=== PATIENT | female | born 1995 | race Caucasian/White ===

== ENCOUNTER 2018-06-03 20:01 | Inpatient (IN) | payer OTHER ==
[~2018-06-03] VITALS: Ht 157.5 cm; Wt 54.4 kg
[2018-06-03 10:03] VITALS: Ht 157.5 cm; Wt 54.4 kg
[~2018-06-03 20:01] MED LIST: AMOX-559 PO; CITA-157 PO; ETHI1TAB3 PO; KET10 PO; ONDA4TAB PO
[2018-06-03 20:35] VITALS: BP 124/82
[2018-06-04 06:42] VITALS: BP 105/76
[2018-06-04 07:18] LABS: PLATELET COUNT, AUTOMATED 258 K/uL (150-450)
[2018-06-04] MEDS: MULTIVITAMINS TAB PO SCH (08:22)
[2018-06-04] MEDS: ESTRADIOL/NORETHINDR ACETATE 1 EA TAB PO SCH (08:30)
--- NOTE | 2018-06-04 09:27 | EKG ---
FACILITY: [facility] PATIENT NAME: AGAPITO CARRINGTON : [id number] MR: [id number] V: [id number] EXAM DATE: ORDERING PHYSICIAN: FAROOQ DHILLON TECHNOLOGIST: SHANIKA Velasquez Reason : Blood Pressure : / mmHG Vent. Rate : 064 BPM Atrial Rate : 064 BPM P-R Int : 128 ms QRS Dur : 078 ms QT Int : 426 ms P-R-T Axes : 042 061 013 degrees QTc Int : 439 ms Normal sinus rhythm with sinus arrhythmia Nonspecific T wave abnormality Abnormal ECG When compared with ECG of 03-JUN-2018 06:02, No significant change was found Confirmed by Caio Allen ([id number]) on 06/04/2018 2:34:53 PM Referred By: Confirmed By:Caio Stanford
[2018-06-04 12:50] VITALS: BP 110/68
[2018-06-04 20:07] VITALS: BP 118/78
--- NOTE | 2018-06-05 03:25 | HISTORY AND PHYSICAL ---
DATE OF ADMISSION: June 03, 2018 DATE AND TIME SEEN: June 04, 2018, at 10 a.m. ATTENDING PRACTITIONER Gail Hinton, Psychiatric Nurse Practitioner PRESENTING PROBLEM/CHIEF COMPLAINT "I felt overwhelmed and just wanted to not feel that way anymore." HISTORY OF PRESENT ILLNESS This is a 23-year-old female admitted to the unit on a voluntary basis as per transfer from the intensive care unit, where she spent one night following an intentional overdose on Celexa and ibuprofen. Patient reports that on the night that she overdosed, she had been feeling overwhelmed related to psychosocial stressors including a relationship with a significant other, problems with friends at school. She has also been stressed about her upcoming graduation from the [employer] and the LSAT that she is scheduled to take next month. She was drinking on the night of overdose, reporting that she had approximately five to six drinks out with friends. She reports that she had not been planning suicide, and that on the night she impulsively overdosed, she had taken approximately 100 ibuprofen and about 12 of her 40 mg Celexa tablets. She was treated in the emergency room and kept overnight in the intensive care unit for observation. Patient reports that she has been taking Celexa for the past four years. She reports that it is overall helpful for her mood and anxiety, and she does not feel that she needs a medication change. She does have anxiety and worries related to the psychosocial stressors as mentioned. She is quite sad about the relationship with the significant other that she found out is nonviable, and this was a main trigger for her suicide attempt. She denies any past history of suicide attempts. She is not currently in therapy. She is denying current suicidal ideation, reporting that her last suicidal thought was that night prior to taking the overdose. CURRENT MEDICATIONS 1. Celexa 40 mg daily. 2. -control pills. MENTAL HEALTH HISTORY She denies hospitalizations for depression. She has been admitted two times for eating disorder treatment, one time at [facility] and [facility] [place]. She reports that she did have a history of anorexia and bulimia, and that she has been in recovery since she was 18 years old. She was hospitalized last for the eating disorder between, she says, her freshman and harleen year of high school. In terms of treatment, she is not currently in therapy, and she denies history of therapy other than the eating disorder inpatient treatments. Prior medications include Zyprexa, Seroquel, Lexapro, Paxil, Prozac. She believes there may have been other medication trials; however, she does not recall. She denies a prior history of suicide attempts. FAMILY PSYCHIATRIC HISTORY She is not aware of any mental illness on her maternal side. She reports that she believes there is mental illness on her paternal side of the family; however, she does not know what diagnoses. There are no known suicides in the family that she is aware of. She denies addiction in the family other than a paternal aunt that is a half sibling of her father's has problems with drug addiction. PAST MEDICAL HISTORY She is on -control pills currently. 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 She denies any current medical complaints. SOCIAL HISTORY She reports that she was born in [place] and she was raised in [place], [place]; [place], [place]; [place], [place]. She reports that she graduated high school in [place]. She is the middle child, has one brother aged 17 and another brother aged 23 years old. Her parents live in [place], [place]. Her father is a psychiatrist. She reports that she does not get along as well with her mother. She does get along well with her father. She is currently living in [place], [place], where she is a senior in college at the [employer]. She will be graduating in August with a degree in history. She plans to take the LSAT, as she would like to attend law school. TRAUMA HISTORY Denied. LEGAL HISTORY She had an MIP for alcohol at age [age] years old. SUBSTANCE ABUSE HISTORY She reports that she first drank alcohol at age 20. She reports that she drinks socially one to two times a week, drinking approximately five to six drinks. She does report a history of blackouts. She denies a history of illicit drug use and denies tobacco use. PHYSICAL EXAMINATION GENERAL: This is a well-developed, well-nourished 23-year-old female in no acute distress. VITAL SIGNS: On admission to the unit, temperature 97.3, pulse 71, blood pressure 124/82, oxygen saturations 97% on room air. Please see emergency room note and ICU records for review of systems. LABORATORY DATA Upon admission to the emergency room, her blood alcohol level was 75. Acetaminophen and salicylate levels were negative. Her urine drug screen was positive for amphetamines, although she does deny using amphetamines. HCG was negative. TSH was 1.00. CBC: Red blood cells at 3.65 and low, hemoglobin at 11.7 and a little low. Chemistries repeated on 06/04/2018 showed chloride at 109, slightly high. Her BUN is 4 and low. Total bilirubin 0.1 and low. Her EKG completed on the morning of 06/04/2018 shows QTC at 426. MENTAL STATUS EXAMINATION GENERAL APPEARANCE, BEHAVIOR AND ATTITUDE: This is a 23-year-old female who appears her stated age. She is dressed in hospital scrubs, per policy. Hygiene appears within normal limits. She makes good eye contact, is cooperative and interactive with clinician. No tearfulness noted during interview. SPEECH: Clear and spontaneous and of normal rate, rhythm, and volume. MOOD: Patient describes mood as better. AFFECT: Somewhat anxious. Range is full and appropriate to situation and content. THOUGHT PROCESSES: Overall logical and goal directed. No loose associations or flight of ideas. THOUGHT CONTENT: She denies any thoughts of self-harm. Denies suicidal thoughts. She denies homicidal thoughts. No delusions are elicited. She denies auditory, visual, or other hallucinations. COGNITION: She is oriented to person, place, day, date, and situation. Estimated intelligence is average based upon interview. MEMORY: Immediate, recent, and remote estimated grossly intact. INSIGHT AND JUDGMENT: Fair. She acknowledges that she has been struggling with stressors. She in the past has not been willing to work with a therapist; however, she is reporting at this time she agrees it may be helpful. ASSESSMENT This is a 23-year-old female admitted to the unit following intentional overdose in a suicide attempt. She reports that this was not a planned attempt and that it was done impulsively. She was intoxicated at the time of attempt. She does report psychosocial stressors that she is able to identify. She is denying suicidal thoughts today. She denies thoughts of self-harm. DIAGNOSES 1. Major depressive disorder, recurrent, moderate. 2. Status post overdose. 3. Rule out alcohol use disorder. PLAN Patient is admitted to the unit. Necessary precautions will be implemented. The patient will participate in individual, group, and milieu psychoeducation and therapy. Medications will be administered and titrated accordingly. Collateral information to be obtained as necessary. ESTIMATED LENGTH OF STAY Three to five days. MTDD
[2018-06-05 04:14] VITALS: BP 115/92
[2018-06-05] MEDS: ESTRADIOL/NORETHINDR ACETATE 1 EA TAB PO SCH (09:10)
[2018-06-05] MEDS: MULTIVITAMINS TAB PO SCH (09:10)
[2018-06-05 14:55] VITALS: BP 90/64
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
[2018-06-05] MEDS: MELATONIN 3 MG TAB PO SCH (21:24)
[2018-06-06 02:29] VITALS: BP 106/77
--- NOTE | 2018-06-06 06:21 | BHS Progress Note ---
[facility] - Subjective Progress Notes Subjective I started Dolly on melatonin last night. She slept well on 3 mgs. She is on no other routine psychiatric medications. It has now been four days since her overdose and we agreed to restart citalopram at 40 mgs, her prior dose. Dolly's mood is much better. She rates her depression as 1/10 and anxiety 3/10 because she is worried about school and anxious to go home. I met with Dolly and her parents this afternoon. We had a very productive session addressing family dynamics, Dolly's needs going forward and their concerns for her. We also talked about a follow-up plan for psychiatric care. Suicidal Ideation: None Homicidal Ideation: None [facility] - Objective Physical Exam Vital Signs 99.2, 69, 101/75. Muscle Strength and Tone: WNL Gait and Station: Steady Allergies Reviewed: Yes Mental Status Exam General Appearance: Casual, Well Groomed, Good Eye Contact, Cooperative, Polite, Good Interaction; No Psychomotor Agitation, No Psychomotor Retardation Speech: Clear, Spontaneous, Normal Rate, Normal Rhythm, Normal Volume, Normal Tone Mood: Euthymic Affect: Full and Appropriate, Calm Thought Process: Organized, Logical, Goal Directed Thought Content: No Suicidal Ideation, No Homicidal Ideation, No Delusions, No Auditory Halllucinations Sensorium: Clear Cognition: Alert & Oriented-Person, Alert & Oriented-Place, Alert & Oriented- Time, Ldglz-Ispgncie-Owsndczsm Memory: Immediate, Recent, Remote Intelligence: Above Average Insight Judgment: Good Result Diagram: 06/04/18 0708 06/04/18 0708 [facility] Assessment and Plan Jget-ny-Jxbb Encounter Date: Jun 06, 2018 Uadz-xl-Ifyh Encounter Time: 08:15 [facility] Plan: Admit to Unit, Necessary Precautions, Individual/Group Therapy, Admin/Titrate Meds, Educate Patient Multpiple Antipsychotics Used: No Problems: (1) Adjustment disorder with depressed mood (2) Suicide attempt by drug ingestion Status: Acute (3) Intentional SSRI (selective serotonin reuptake inhibitor) overdose Status: Acute (4) Ibuprofen overdose Status: Acute (5) Malignant peripheral nerve sheath tumor Status: Resolved (6) Pyelonephritis Status: Resolved Condition 1. restart citalpram 40 mgs daily 2. Complete wellness recovery plan today 3. Hope to discharge tomorrow. 4. Dolly would benefit from an oral iron supplement as well ARIAS CANALES DO Jun 06, 2018 06:21
[2018-06-06] MEDS: MULTIVITAMINS TAB PO SCH (08:44)
[2018-06-06] MEDS: ESTRADIOL/NORETHINDR ACETATE 1 EA TAB PO SCH (08:44)
[2018-06-06] MEDS ORDERED: MAGNESIUM HYDROXIDE* 30ML UDCP PO PRN (09:35)
[2018-06-06] MEDS: CITALOPRAM HYDROBROM 20 MG TAB PO SCH (11:08)
[2018-06-06 12:30] VITALS: BP 101/75
[2018-06-06] MEDS: MELATONIN 3 MG TAB PO SCH (20:55)
[2018-06-07 06:00] VITALS: BP 107/73
[2018-06-07] MEDS: ESTRADIOL/NORETHINDR ACETATE 1 EA TAB PO SCH (08:11)
[2018-06-07] MEDS: MULTIVITAMINS TAB PO SCH (08:11)
[2018-06-07] MEDS: CITALOPRAM HYDROBROM 20 MG TAB PO SCH (08:11)
[2018-06-07] MEDS ORDERED: CITA-157 PO (09:53)
[2018-06-07] MEDS ORDERED: MELA3TAB31 PO (09:54)
[2018-06-07 10:10] VITALS: BP 104/68
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
== END 2018-06-07 16:20 | disposition home or self-care (01) | DRG 881 ==
LOC: BHS 20:01
PROVIDERS: ADMIT Nurse Practitioner Psychiatric/Mental Health; ATTEND Nurse Practitioner Psychiatric/Mental Health
DX: F43.21 Adjustment disorder with depressed mood (principal); T39.312D Poisoning by propionic acid derivatives, intentional self-harm, subsequent encounter; T43.222D Poisoning by selective serotonin reuptake inhibitors, intentional self-harm, subsequent encounter; Z85.848 Personal history of malignant neoplasm of other parts of nervous tissue; G47.00 Insomnia, unspecified
CPT/HCPCS: 36415; 82040; 82247; 82310; 82374; 82435; 82565; 82947; 84075; 84132; 84155; 84295; 84450; 84460; 84520; 85025; 93005

== ENCOUNTER 2018-06-30 15:19 | Observation (INO) | payer OTHER ==
[~2018-06-30] VITALS: Ht 157.5 cm; Wt 52.7 kg
[2018-06-30] VITALS (11 sets, daily range): BP systolic 121–136; BP diastolic 93–105
[~2018-06-30 15:19] MED LIST changes: +MELA3TAB31 PO
--- NOTE | 2018-06-30 15:31 | ER Report ---
History and Physical Time Seen By MD: 15:26 HPI/ROS CHIEF COMPLAINT: Suicide attempt HISTORY OF PRESENT ILLNESS: This is a 23-year-old female who presents to the emergency department via a friend for suicide attempt. The patient apparently took 3040 mg Celexa last night in addition to an unknown quantity of Adderall with wine and possibly other alcoholic beverages. No other illicit drugs. Patient is alert she is somnolent but will answer my questions appropriately. She states that she's not sure why she took the medication she has 1 prior suicide attempt. Long history of depression. No fevers or chills. No chest pain or shortness of breath. REVIEW OF SYSTEMS: Constitutional: No fever, no chills. Eyes: No discharge. ENT: No sore throat. Cardiovascular: No chest pain, no palpitations. Respiratory: No cough, no shortness of breath. Gastrointestinal: No abdominal pain, no vomiting. Genitourinary: No hematuria. Musculoskeletal: No back pain. Skin: No rashes. Neurological: As above. Psychological: As above. Allergies: Coded Allergies: No Known Drug Allergies (Unverified , 06/30/18) Home Meds Reported Medications Melatonin (MELATONIN) 3 Mg Tablet, 3 MG PO QHS 06/07/18 Citalopram Hydrobromide (CELEXA) 40 Mg Tablet, 40 MG PO QDAY, #5 TAB 06/07/18 Ethinyl Estradiol/Drospirenone (ADRIANA 28 TABLET) 1 Each Tablet, 1 EACH PO QDAY 01/21/15 Past Medical/Surgical History Patient has a past medical and surgical history of urinary tract infection, "both ovaries tacked on left side", arthritis and she doesn't toes, bilateral foot fractures, wears glasses and contacts, depression, anxiety suicide attempt, eating disorder, 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 Reviewed Nurses Notes: Yes Hx Smoking: No Smoking Status: Never Smoker Exposure to Second Hand Smoke?: Yes Hx Substance Use Disorder: No Hx Alcohol Use: Yes Constitutional Vital Sign - Last 24 Hours 06/30/18 06/30/18 06/30/18 06/30/18 15:24 15:29 15:30 15:45 Temp 99.3 Pulse 142 140 139 Resp 12 20 28 B/P (MAP) 139/101 137/102 (114) 137/99 (112) Pulse Ox 100 99 100 O2 Delivery Nasal Cannula O2 Flow Rate 1.0 06/30/18 06/30/18 06/30/18 06/30/18 16:00 16:15 16:30 16:45 Pulse 133 131 134 130 Resp 24 11 27 26 B/P (MAP) 134/100 (111) 139/99 (112) 141/103 (116) 135/102 (113) Pulse Ox 100 100 98 99 06/30/18 06/30/18 17:00 17:15 Pulse 129 131 Resp 34 16 B/P (MAP) 141/96 (111) 143/109 (120) Pulse Ox 97 91 Physical Exam General Appearance: The patient is alert, has no immediate need for airway protection and no signs of toxicity. Eyes: Pupils 5mm, equal, round and reactive to light, no pallor or injection. One beat of lateral nystagmus bilaterally. EOMs intact. ENT, Mouth: Mucous membranes are moist. Respiratory: There are no retractions, lungs are clear to auscultation. Cardiovascular: Regular rate and rhythm, no murmurs, clicks or rubs. Gastrointestinal: Abdomen is soft and non tender, no masses, bowel sounds normal. Neurological: Alert and oriented 4. Moving all extremities. Following all commands. No focal neuro deficits. Skin: Warm and dry, no rashes. Musculoskeletal: Neck is supple non tender. Extremities are nontender, nonswollen and have full range of motion. DIFFERENTIAL DIAGNOSIS: After history and physical exam differential diagnosis was considered for intentional overdose. Medical Decision Making Data Points Result Diagram: 06/30/18 1524 06/30/18 1524 Laboratory Hematology Test 06/30/18 15:15 06/30/18 15:24 Urine Color Yellow Urine Clarity Clear Urine pH 8.0 pH (4.8-9.5) Urine Specific [place] 1.008 Urine Protein Negative mg/dL (NEGATIVE) Urine Glucose (UA) Negative mg/dL (NEGATIVE) Urine Ketones Negative mg/dL (NEGATIVE) Urine Blood Small (NEGATIVE) Urine Nitrite Negative (NEGATIVE) Urine Bilirubin Negative (NEGATIVE) Urine Urobilinogen Negative mg/dL (0.2-1.9) Urine Leukocyte Esterase Negative (NEGATIVE) Urine RBC None /HPF (0-2/HPF) Urine WBC None /HPF (0-5/HPF) Urine Squamous Epithelial Cells None /LPF (</=FEW) Urine Bacteria Negative /HPF (NONE-FEW) Urine Mucus None /HPF (NONE-FEW) Urine HCG, Qualitative Negative (NEGATIVE) Urine Opiates Screen Negative Urine Barbiturates Screen Negative Ur Tricyclic Antidepressants Screen Negative Urine Phencyclidine Screen Negative Urine Amphetamines Screen Positive Urine Benzodiazepines Screen Negative Urine Cocaine Screen Negative Urine Cannabinoids Screen Negative Red Blood Count 4.32 M/uL (4.17-5.56) Mean Corpuscular Volume 93.8 fL (80.0-96.0) Mean Corpuscular Hemoglobin 31.6 pg (26.0-33.0) Mean Corpuscular Hemoglobin Concent 33.6 g/dL (32.0-36.0) Red Cell Distribution Width 12.7 % (11.5-14.5) Mean Platelet Volume 7.8 fL (7.2-11.1) Neutrophils (%) (Auto) 76.7 % (39.4-72.5) Lymphocytes (%) (Auto) 15.1 % (17.6-49.6) Monocytes (%) (Auto) 7.8 % (4.1-12.4) Eosinophils (%) (Auto) 0.1 % (0.4-6.7) Basophils (%) (Auto) 0.3 % (0.3-1.4) Nucleated RBC Relative Count (auto) 0.0 /100WBC Neutrophils # (Auto) 8.3 K/uL (2.0-7.4) Lymphocytes # (Auto) 1.6 K/uL (1.3-3.6) Monocytes # (Auto) 0.8 K/uL (0.3-1.0) Eosinophils # (Auto) 0.0 K/uL (0.0-0.5) Basophils # (Auto) 0.0 K/uL (0.0-0.1) Nucleated RBC Absolute Count (auto) 0.00 K/uL Sodium Level 137 mmol/L (137-145) Potassium Level 3.9 mmol/L (3.5-5.0) Chloride Level 101 mmol/L (98-107) Carbon Dioxide Level 21 mmol/L (22-31) Blood Urea Nitrogen 7 mg/dl (7-18) Creatinine 0.80 mg/dl (0.52-1.04) Glomerular Filtration Rate Calc > 60.0 Random Glucose 106 mg/dl (75-110) Calcium Level 9.2 mg/dl (8.4-10.2) Magnesium Level 1.9 mg/dl (1.7-2.2) Total Bilirubin 0.2 mg/dl (0.2-1.3) Aspartate Amino Transf (AST/SGOT) 31 U/L (0-35) Alanine Aminotransferase (ALT/SGPT) 29 U/L (0-56) Alkaline Phosphatase 83 U/L (0-126) Total Protein 8.7 g/dl (6.3-8.2) Albumin 4.9 g/dl (3.5-5.0) Thyroid Stimulating Hormone (TSH) 9.68 uIU/ml (0.46-4.68) Salicylates Level < 10 mg/L Salicylate Last Dose Date unk Acetaminophen Level < 10 ug/ml Serum Alcohol < 10 mg/dl Chemistry Test 06/30/18 15:15 06/30/18 15:24 Urine Color Yellow Urine Clarity Clear Urine pH 8.0 pH (4.8-9.5) Urine Specific [place] 1.008 Urine Protein Negative mg/dL (NEGATIVE) Urine Glucose (UA) Negative mg/dL (NEGATIVE) Urine Ketones Negative mg/dL (NEGATIVE) Urine Blood Small (NEGATIVE) Urine Nitrite Negative (NEGATIVE) Urine Bilirubin Negative (NEGATIVE) Urine Urobilinogen Negative mg/dL (0.2-1.9) Urine Leukocyte Esterase Negative (NEGATIVE) Urine RBC None /HPF (0-2/HPF) Urine WBC None /HPF (0-5/HPF) Urine Squamous Epithelial Cells None /LPF (</=FEW) Urine Bacteria Negative /HPF (NONE-FEW) Urine Mucus None /HPF (NONE-FEW) Urine HCG, Qualitative Negative (NEGATIVE) Urine Opiates Screen Negative Urine Barbiturates Screen Negative Ur Tricyclic Antidepressants Screen Negative Urine Phencyclidine Screen Negative Urine Amphetamines Screen Positive Urine Benzodiazepines Screen Negative Urine Cocaine Screen Negative Urine Cannabinoids Screen Negative White Blood Count 10.8 k/uL (4.5-11.0) Red Blood Count 4.32 M/uL (4.17-5.56) Hemoglobin 13.6 g/dL (12.0-16.0) Hematocrit 40.5 % (34.0-47.0) Mean Corpuscular Volume 93.8 fL (80.0-96.0) Mean Corpuscular Hemoglobin 31.6 pg (26.0-33.0) Mean Corpuscular Hemoglobin Concent 33.6 g/dL (32.0-36.0) Red Cell Distribution Width 12.7 % (11.5-14.5) Platelet Count 341 K/uL (150-450) Mean Platelet Volume 7.8 fL (7.2-11.1) Neutrophils (%) (Auto) 76.7 % (39.4-72.5) Lymphocytes (%) (Auto) 15.1 % (17.6-49.6) Monocytes (%) (Auto) 7.8 % (4.1-12.4) Eosinophils (%) (Auto) 0.1 % (0.4-6.7) Basophils (%) (Auto) 0.3 % (0.3-1.4) Nucleated RBC Relative Count (auto) 0.0 /100WBC Neutrophils # (Auto) 8.3 K/uL (2.0-7.4) Lymphocytes # (Auto) 1.6 K/uL (1.3-3.6) Monocytes # (Auto) 0.8 K/uL (0.3-1.0) Eosinophils # (Auto) 0.0 K/uL (0.0-0.5) Basophils # (Auto) 0.0 K/uL (0.0-0.1) Nucleated RBC Absolute Count (auto) 0.00 K/uL Glomerular Filtration Rate Calc > 60.0 Calcium Level 9.2 mg/dl (8.4-10.2) Magnesium Level 1.9 mg/dl (1.7-2.2) Total Bilirubin 0.2 mg/dl (0.2-1.3) Aspartate Amino Transf (AST/SGOT) 31 U/L (0-35) Alanine Aminotransferase (ALT/SGPT) 29 U/L (0-56) Alkaline Phosphatase 83 U/L (0-126) Total Protein 8.7 g/dl (6.3-8.2) Albumin 4.9 g/dl (3.5-5.0) Thyroid Stimulating Hormone (TSH) 9.68 uIU/ml (0.46-4.68) Salicylates Level < 10 mg/L Salicylate Last Dose Date unk Acetaminophen Level < 10 ug/ml Serum Alcohol < 10 mg/dl Toxicology Test 06/30/18 15:15 06/30/18 15:24 Urine Opiates Screen Negative Urine Barbiturates Screen Negative Ur Tricyclic Antidepressants Screen Negative Urine Phencyclidine Screen Negative Urine Amphetamines Screen Positive Urine Benzodiazepines Screen Negative Urine Cocaine Screen Negative Urine Cannabinoids Screen Negative Salicylates Level < 10 mg/L Salicylate Last Dose Date unk Acetaminophen Level < 10 ug/ml Serum Alcohol < 10 mg/dl Urinalysis Test 06/30/18 15:15 Urine Color Yellow Urine Clarity Clear Urine pH 8.0 pH (4.8-9.5) Urine Specific [place] 1.008 Urine Protein Negative mg/dL (NEGATIVE) Urine Glucose (UA) Negative mg/dL (NEGATIVE) Urine Ketones Negative mg/dL (NEGATIVE) Urine Blood Small (NEGATIVE) Urine Nitrite Negative (NEGATIVE) Urine Bilirubin Negative (NEGATIVE) Urine Urobilinogen Negative mg/dL (0.2-1.9) Urine Leukocyte Esterase Negative (NEGATIVE) Urine RBC None /HPF (0-2/HPF) Urine WBC None /HPF (0-5/HPF) Urine Squamous Epithelial Cells None /LPF (</=FEW) Urine Bacteria Negative /HPF (NONE-FEW) Urine Mucus None /HPF (NONE-FEW) Urine HCG, Qualitative Negative (NEGATIVE) EKG/Imaging EKG Interpretation 12 lead EKG: Time of EKG 1526. Rhythm: Sinus tachycardia, ventricular rate 141 bpm. [place]: normal QRS: normal ST segments: No ST depression or elevation identified. No significant changes from the 06/04/2018 EKG other than rate, amplitude and current EKG showing positive deflection of the T-wave in V2. ED Course/Re-evaluation Clinical Indication for ER IV: Hydration, IV Access ED Course The patient was admitted to room. A history of square obtained. Differential diagnoses were considered. An IV was started. A CBC, CMP, psych panel was obtained. A 1 L normal saline bolus was given. Followed by saline at 125 an hour. Initial EKG showing sinus tachycardia no ST depression or elevation.CBC unremarkable, chemistry showing TSH 9.68, tox screen positive for amphetamines secondary to Adderall, negative alcohol otherwise unremarkable, negative UA. I did emergency detain the patient, she understood why, I also spoke with Dr. Umm Bedoya is noted below, the hospitalist, she will be admitted to the ICU, also spoke with Caitlin Crews the therapist on-call, she will consult and the patient will likely go to the behavioral unit tomorrow. Poison control was contacted note their recommendations below. 06/30/2018 5:15:34 pm I did speak with Dr. Umm Bedoya, the hospitalist on-call, we discussed case, the patient will be admitted to the ICU for suicide attempt. Poison control did recommend 13 hours of cardiac monitoring for Celexa dosing greater than 1000 mg, estimated 1200 mg of Celexa was ingested. Also monitor for torsades and hyperthermia, repeat EKG in 4-6 hours. The patient was detained in the emergency department. I did contact Caitlin Crews, the therapist on-call we discussed the case, she is aware of the patient's status. Decision to Disposition Date: Jun 30, 2018 Decision to Disposition Time: 17:14 Depart Departure Latest Vital Signs Vital Signs Date Time Temp Pulse Resp B/P (MAP) Pulse Ox O2 Delivery O2 Flow Rate FiO2 06/30/18 17:15 131 16 143/109 (120) 91 06/30/18 15:29 1.0 06/30/18 15:24 99.3 Nasal Cannula Impression: Primary Impression: Suicide attempt by drug ingestion Condition: Critical Disposition: Admitted from ER Problem Qualifiers Primary Impression: Suicide attempt by drug ingestion Encounter type: subsequent encounter Qualified Codes: T50.902D - Poisoning by unspecified drugs, medicaments and biological substances, intentional self-harm, subsequent encounter NIKO RODRIGUEZ DRAWING SUPERVISOR-BC Jun 30, 2018 15:31
--- NOTE | 2018-06-30 15:34 | EKG ---
FACILITY: [facility] - [place], [place] PATIENT NAME: AGAPITO CARRINGTON : [id number] MR: [id number] V: [id number] EXAM DATE: ORDERING PHYSICIAN: NIKO RODRIGUEZ TECHNOLOGIST: Test Reason : overdose, tachycardia Blood Pressure : / mmHG Vent. Rate : 141 BPM Atrial Rate : 141 BPM P-R Int : 124 ms QRS Dur : 078 ms QT Int : 286 ms P-R-T Axes : 071 054 025 degrees QTc Int : 438 ms Sinus tachycardia Otherwise normal ECG When compared with ECG of 04-JUN-2018 08:46, Vent. rate has increased BY 77 BPM T wave inversion no longer evident in Anterior leads Confirmed by SANTOSH LOWERY ([id number]) on 07/01/2018 6:41:31 AM Referred By: Confirmed By:SANTOSH LOWERY
[2018-06-30 15:40] LABS: PLATELET COUNT, AUTOMATED 341 K/uL (150-450)
[2018-06-30] MEDS ORDERED: NS(*) 0.9% 1000 ML BAG 1,000 ML IV ONE ×2 (15:47→17:10)
[2018-06-30] MEDS ORDERED: FLUSH 10 ML SYR IVP PRN (18:20)
[2018-06-30] MEDS ORDERED: NS(*) 0.9% 1000 ML BAG 1,000 ML IV PRN (18:20)
--- NOTE | 2018-06-30 18:49 | History & Physical ---
History of Present Illness Chief Complaint The patient is a 23 year old with PMH significant for depression, eating disorder and previous overdose who presents after taking thirty 40mg Celexa and six Adderall last evening after drinking alcohol. History of Present Illness The patient was hospitalized on June 02 with intentional Celexa overdose. She has a history of depression and eating disorder. 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 The patient states she was doing well yesterday and then last evening some changed, as if a switch was flipped. She can not provide great details but states she went to [employer] and drank alcohol. She then came home and took her Celexa and some Adderall. She woke up this am on the floor of her apartment. She does not know how she got there. She was brought by a friend to [facility] ER for evaluation. History Problems: (1) Depression Status: Chronic (2) Intentional SSRI (selective serotonin reuptake inhibitor) overdose Status: Acute Comment: 06/02/18 (3) Malignant peripheral nerve sheath tumor Status: Resolved (4) Eating disorder Status: Chronic Home Meds Reported Medications Melatonin (MELATONIN) 3 Mg Tablet, 3 MG PO QHS 06/07/18 Citalopram Hydrobromide (CELEXA) 40 Mg Tablet, 40 MG PO QDAY, #5 TAB 06/07/18 Ethinyl Estradiol/Drospirenone (ADRIANA 28 TABLET) 1 Each Tablet, 1 EACH PO QDAY 01/21/15 Allergies: Coded Allergies: No Known Drug Allergies (Unverified , 06/30/18) Other Social/Family Hx The patient attends the [employer]. Her family lives in [place]. Hx Smoking: No Smoking Status: Never Smoker Exposure to Second Hand Smoke?: Yes Caffeine Intake: Coffee Caffeine/Cups Per Day: 2 cups a day Hx Alcohol Use: Yes Hx Substance Use Disorder: No Social Drug Use: Never History of IV Drug Use: No Review of Systems All Systems Reviewed/Normal: Yes, Except as Noted Constitutional: Other (Feels poorly, can't explain.) Cardiovascular: No Chest Pain Respiratory: No Shortness of Breath Gastrointestinal: No Nausea Genitourinary: No Dysuria Musculoskeletal: No Pain Psychiatric: Depression Exam Vital Signs Vital Signs Date Time Temp Pulse Resp B/P (MAP) Pulse Ox O2 Delivery O2 Flow Rate FiO2 06/30/18 18:32 119 20 136/105 (115) 95 Room Air 06/30/18 18:16 99.6 06/30/18 15:29 1.0 General Appearance: Alert, Awake, No Acute Distress, Afebrile Neuro: No Gross deficits Eyes: PERRLA ENT: Other (Lips are dry.) Neck: No Masses Cardiovascular: Other (Hyperdynamic, tachycardic, regular, without murmur or gallop.) Respiratory: No Respiratory Distress, Clear to Auscultation GI: Abd Soft and Non-Tender Extremities: Warm, Pulses, Perfused, Other (No edema. ) Integumentary: Other (Scattered bruises over lower legs.) Psych: Alert & Oriented X3 Medical Decision Making Data Points Result Diagram: 06/30/18 15206/30/181523 Item Value Date Time Neutrophils (%) (Auto) 76.7 % H 06/30/18 152 Lymphocytes (%) (Auto) 15.1 % L 06/30/18 152 Monocytes (%) (Auto) 7.8 % 06/30/18 1524 Eosinophils (%) (Auto) 0.1 % L 06/30/18 152 Basophils (%) (Auto) 0.3 % 06/30/181523 Nucleated RBC Relative Count (auto) 0.0 /100WBC 06/30/181523 Neutrophils # (Auto) 8.3 K/uL H 06/30/184 Lymphocytes # (Auto) 1.6 K/uL 06/30/18 1524 Monocytes # (Auto) 0.8 K/uL 06/30/18 1524 Eosinophils # (Auto) 0.0 K/uL 06/30/18 1524 Basophils # (Auto) 0.0 K/uL 06/30/18 152 Nucleated RBC Absolute Count (auto) 0.00 K/uL 06/30/18 1524 Random Glucose 106 mg/dl 06/30/18 1524 Calcium Level 9.2 mg/dl 06/30/18 1524 Magnesium Level 1.9 mg/dl 06/30/18 1524 Total Bilirubin 0.2 mg/dl 06/30/18 1524 Aspartate Amino Transf (AST/SGOT) 31 U/L 06/30/18 1524 Alanine Aminotransferase (ALT/SGPT) 29 U/L 06/30/18 1524 Alkaline Phosphatase 83 U/L 06/30/18 1524 Total Protein 8.7 g/dl H 06/30/18 1524 Albumin 4.9 g/dl 06/30/18 1524 Thyroid Stimulating Hormone (TSH) 9.68 uIU/ml H 06/30/18 1524 Salicylates Level < 10 mg/L 06/30/18 1524 Salicylate Last Dose Date unk 06/30/18 1524 Acetaminophen Level < 10 ug/ml 06/30/18 1524 Serum Alcohol < 10 mg/dl 06/30/18 1524 Urine Opiates Screen Negative 06/30/18 1515 Urine Barbiturates Screen Negative 06/30/18 1515 Ur Tricyclic Antidepressants Screen Negative 06/30/18 1515 Urine Phencyclidine Screen Negative 06/30/18 1515 Urine Amphetamines Screen Positive 06/30/18 1515 Urine Benzodiazepines Screen Negative 06/30/18 1515 Urine Cocaine Screen Negative 06/30/18 1515 Urine Cannabinoids Screen Negative 06/30/18 1515 Urine Color Yellow 06/30/18 1515 Urine Clarity Clear 06/30/18 1515 Urine pH 8.0 pH 06/30/18 1515 Urine Specific [place] 1.008 06/30/18 1515 Urine Protein Negative mg/dL 06/30/18 1515 Urine Glucose (UA) Negative mg/dL 06/30/18 1515 Urine Ketones Negative mg/dL 06/30/18 1515 Urine Blood Small 06/30/18 1515 Urine Nitrite Negative 06/30/18 1515 Urine Bilirubin Negative 06/30/18 1515 Urine Urobilinogen Negative mg/dL 06/30/18 1515 Urine Leukocyte Esterase Negative 06/30/18 1515 Urine RBC None /HPF 06/30/18 1515 Urine WBC None /HPF 06/30/18 1515 Urine Squamous Epithelial Cells None /LPF 06/30/18 1515 Urine Bacteria Negative /HPF 06/30/18 1515 Urine Mucus None /HPF 06/30/18 1515 Urine HCG, Qualitative Negative 06/30/18 1515 EKG / Imaging EKG Interpretation FACILITY: [facility] [place] PATIENT NAME: AGAPITO CARRINGTON : [id number] MR: [id number] V: [id number] EXAM DATE: ORDERING PHYSICIAN: NIKO RODRIGUEZ TECHNOLOGIST: Test Reason : overdose, tachycardia Blood Pressure : / mmHG Vent. Rate : 141 BPM Atrial Rate : 141 BPM P-R Int : 124 ms QRS Dur : 078 ms QT Int : 286 ms P-R-T Axes : 071 054 025 degrees QTc Int : 438 ms Sinus tachycardia Otherwise normal ECG When compared with ECG of 04-JUN-2018 08:46, Vent. rate has increased BY 77 BPM T wave inversion no longer evident in Anterior leads Referred By: Confirmed By: [id number] T: Pre-Admit Course Medical Record Review: Yes Assessment and Plan Problems: (1) Intentional SSRI (selective serotonin reuptake inhibitor) overdose Status: Acute Assessment & Plan: Will admit to ICU and monitor on telemetry. Monitor for arrhythmias. Repeat EKG at 2029. Benzodiazepines for agitation/anxiety as needed. Hydrate. Psychiatry to see in am. Following Poison Control's recommendations. (2) Depression Status: Chronic Assessment & Plan: On Celexa. Will have psychiatry see. Time Spent on Plan of Care: < 30 min Venous Thromboembolism Antithrombotics Is Pt On Any Antithrombotics?: No (Ambulate early.) Exam Sepsis Risk: No Definite Risk SANTOSH ROBINS MD Jun 30, 2018 18:49
--- NOTE | 2018-06-30 19:35 | BHS - Psychiatric Evaluation ---
ER - Title 25 MHE Evaluation Title 25 Evaluation Patient Detained By: Physician (KIRAN Godfrey) Referral Source: Professional: ER Professional, Rafael Coburn Date Patient Detained: Jun 30, 2018 Time Patient Detained: 17:30 Date Mcfp Expires: Jul 04, 2018 Time Mcfp Expires: 17:30 Legal Status: Police Hold: No Legal Status: Residence: Student Assessment Data Provided By: Patient, Other Source ([facility] physician, Nicole Bedoya) HPI/ROS: Per ER professional, Rafael Coburn, "This is a 23-year-old female who presents to the emergency department via a friend for suicide attempt. The patient apparently took 3040 mg Celexa last night in addition to an unknown quantity of Adderall with wine and possibly other alcoholic beverages. No other illicit drugs. Patient is alert she is somnolent but will answer my questions appropriately. She states that she's not sure why she took the medication she has 1 prior suicide attempt. Long history of depression." Admit due to SI or Attempt: Yes Suicide Plan: Has Plan w/out Access Alcohol or Drugs Involved: Yes (Patient told ER professionals she drank some wine.) Is Patient Info Reliable: Yes (patient acknowledges she tried to take her life, and says, "I don't know why I did this. It was like I was watching myself do it.") Is Collateral Info Reliable: Yes (No collateral info from this visit, but last month her mother shared a great deal about patient's history.) Current Home Psych Meds: Celexa Mental Status Exam General Appearance: Casual, Good Eye Contact, Cooperative, Good Interaction, Tearful Speech: No Normal Volume (Spoke in a whisper) Mood: Dysthmic/Depressed Affect: Sad Thought Process: Logical Thought Content: Suicidal Ideation (Says about her overdose, "I don't know why I did this. I need help.") Cognition: Alert & Oriented-Person, Alert & Oriented-Place; No Alert & Oriented-Time, No Fyhyf-Xtkddvom-Qqthtdsis Memory: Immediate, Recent Insight Judgment: Poor Sleep: Hypersomnia (Patient is somnolent related to overmedication.) Hallucinations: Denies Delusions: Denies Current Risk & History Current Dangerous Risk Assessm: Current Suicide Ideation (Although patient is sleepy, she says about her overdose, "I don't know why I did this. I need help.") Past Dangerous Risk Assessm: Suicide Ideation-last 6mo (Patient was admitted voluntarily for an overdose in May.) Previous Suicide Attempt: Past - High Lethality Number of Attempts/Description 1 other attempt here at [facility]. Previous Psychiatric Illness: Yes (Depression and an eating disorder.) Previous Psychiatric Treatment: Yes Previous Treatment Description Patient was connected to [facility] for outpatient treatment as followup for her recent overdose in May of this year, but says she did not go. Risk Assessment & Disposition Evaluated Risk Assessment: Risk is quite high. This is the 2nd time in the last two months patient has tried to complete suicide by intentional overdose. 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 She also reports some familial stressors, especially some relational difficulty with mother and older brother. Impression: Primary Impression: Suicide attempt by drug ingestion Additional Impression: Depression Meets Mental Illness Req.: Yes Meets Dangerousness Req.: Yes Emergency Mcfp to be: Upheld Decision Comment: Risk is quite high. This is the 2nd time in the last two months patient has tried to complete suicide by intentional overdose. 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 She also reports some familial stressors, especially some relational difficulty with mother and older brother. Date of Decision: Jun 30, 2018 Time of Decision: 19:33 Patient is Medically Stable at: Yes (needs to be monitored in the ICU, per poison control.) Disposition: ICU (Will transfer to [facility] once she is medically clear to leave ICU.) Problem Qualifiers Primary Impression: Suicide attempt by drug ingestion Encounter type: subsequent encounter Qualified Codes: T50.902D - Poisoning by unspecified drugs, medicaments and biological substances, intentional self-harm, subsequent encounter LYN TEJEDA ADJUSTMENT CLERK Jun 30, 2018 19:35
--- NOTE | 2018-06-30 19:56 | BHS - Psychiatric Evaluation ---
Title 25 Evaluation Hearing Report: 109 Date of Report: Jun 30, 2018 Examiner: [facility] Patient Detained By: Physician (KIRAN Godfrey) Date Patient Detained: Jun 30, 2018 Time Patient Detained: 17:30 Date Snf Expires: Jul 04, 2018 Time Snf Expires: 17:30 Legal Status: Police Hold: No Legal Status: Relationship: Single Legal Status: Residence: Student Referral Source: Professional: ER Professional, Rafael Coburn Assessment Data Provided By: Patient, Other Source ([facility] physician, Nicole Bedoya) HPI/ROS: Per ER professional, Rafael Coburn, "This is a 23-year-old female who presents to the emergency department via a friend for suicide attempt. The patient apparently took 3040 mg Celexa last night in addition to an unknown quantity of Adderall with wine and possibly other alcoholic beverages. No other illicit drugs. Patient is alert she is somnolent but will answer my questions appropriately. She states that she's not sure why she took the medication she has 1 prior suicide attempt. Long history of depression." Diagnosis: Major Depression with suicide attempt x2 Risk Formulation: Risk is high. This is patient's second attempt by overdose. Her last attempt was on June 02. She reports feeling stressed about taking the LSAT this month on the . She did not followup with outpatient care after her stay at [facility] last month. Recommendations of [facility] Team: The patient "evidences a substantial probability of physical harm to self as manifested by evidence of recent threats of/or attempts at suicide or serious bodily harm" as evidenced by: 2 attempts to end her life by suicide within two months. Current Dangerous Risk Assess: Current Suicide Ideation (Patient says she does not know why she tried to end her life this time.) Current Risk Summary: Risk is high. This is patient's second attempt by overdose. Her last attempt was on June 02. She reports feeling stressed about taking the LSAT this month on the . She did not followup with outpatient care after her stay at [facility] last month. Past Dangerous Risk Assess: Suicide Ideation-last 6mo (Patient was admitted voluntarily for an overdose in May.) [facility] - Exam Physical Exam Vital Signs Vital Signs 06/30/18 06/30/18 06/30/18 15:29 18:16 18:32 Temp 99.6 Pulse 119 Resp 20 B/P (MAP) 136/105 (115) Pulse Ox 95 O2 Delivery Room Air O2 Flow Rate 1.0 Mental Status Exam General Appearance: Casual, Good Eye Contact, Cooperative, Good Interaction, Tearful Speech: No Normal Volume (Spoke in a whisper) Mood: Dysthmic/Depressed Affect: Sad Thought Process: Logical Thought Content: Suicidal Ideation (Says about her overdose, "I don't know why I did this. I need help.") Cognition: Alert & Oriented-Person, Alert & Oriented-Place; No Alert & Oriented-Time, No Wepja-Mbsvhorv-Njmoqquvb Memory: Immediate, Recent Insight Judgment: Poor Sleep: Hypersomnia (Patient is somnolent related to overmedication.) Care & Behavior on Unit Treatment Team Participation: Patient will transition to [facility] once she is cleared from ICU. Last month when she needed to be a patient at [facility] she was cooperative and engaged. Pt. Taking Meds Voluntarily: Yes Title 25 History Psychiatric History: From Gail Hinton, the last psychiatric provider that interviewed and cared for patient during an overdose in May, "She denies hospitalizations for depression. She has been admitted two times for eating disorder treatment, one time at [facility] and [facility] [place]. She reports that she did have a history of anorexia and bulimia, and that she has been in recovery since she was 18 years old. She was hospitalized last for the eating disorder between, she says, her freshman and harleen year of high school. In terms of treatment, she is not currently in therapy, and she denies history of therapy other than the eating disorder inpatient treatments. Prior medications include Zyprexa, Seroquel, Lexapro, Paxil, Prozac. She believes there may have been other medication trials; however, she does not recall. She denies a prior history of suicide attempts (prior to the attempt in May). " Family Psychiatric Hx: Patient told Gail Hinton during her last stay at [facility] last month, "She is not aware of any mental illness on her maternal side. She reports that she believes there is mental illness on her paternal side of the family; however, she does not know what diagnoses. There are no known suicides in the family that she is aware of. She denies addiction in the family other than a paternal aunt that is a half sibling of her father's has problems with drug addiction." Social History: Patient is a 23 year old single woman who is here for an intentional overdose (last overdose was last month).. She had multiple social stressors especially a breakup with boyfriend last month and some negative interactions with people who were friends with her boyfriend. Patient acknowledges some anxiety about graduation at the conclusion of this semester as well as taking the LSAT exam. Had significant stays in hospitals when she was younger due to childhood cancer and afterwards an eating disorder. Says she does not open up easily to people. Prior Hospitalizations: Had significant stays in hospitals when she was younger due to childhood cancer and afterwards an eating disorder. Drug & Alcohol Use: Has reported some drinking at her last inpatient stay. This stay patient acknowledges drinking wine. Current Living Situation: Patient living on her own in [place]. She is not certain about where she will live after graduation. Education: Patient will graduate at the conclusion of the semester with a Bachelor's degree. Patient Strengths: Patient is bright, verbal, and congenial. Relevant Medications: Patient will be evaluated to determine if a medication is safe for her especially related to two overdoses. [employer] Jun 30, 2018 19:51
[2018-06-30] MEDS: DIAZEPAM 5 MG TAB PO PRN (20:08)
--- NOTE | 2018-06-30 20:57 | EKG ---
FACILITY: [facility] - [place] PATIENT NAME: AGAPITO CARRINGTON : [id number] MR: [id number] V: [id number] EXAM DATE: ORDERING PHYSICIAN: SANTOSH ROBINS TECHNOLOGIST: PAULIE Test Reason : OVERDOSE Blood Pressure : / mmHG Vent. Rate : 107 BPM Atrial Rate : 107 BPM P-R Int : 146 ms QRS Dur : 082 ms QT Int : 386 ms P-R-T Axes : 065 078 070 degrees QTc Int : 515 ms Sinus tachycardia Otherwise normal ECG When compared with ECG of 30-JUN-2018 15:26, No significant change was found Confirmed by SANTOSH LOWERY ([id number]) on 07/01/2018 6:35:04 AM Referred By: Confirmed By:SANTOSH LOWERY
[2018-07-01] VITALS (16 sets, daily range): BP systolic 98–122; BP diastolic 66–91; Ht 157.5 cm; Wt 52.7 kg
[2018-07-01] MEDS: DIAZEPAM 5 MG TAB PO PRN ×2 (02:10→08:22)
--- NOTE | 2018-07-01 07:01 | EKG ---
FACILITY: [facility] PATIENT NAME: AGAPITO CARRINGTON : [id number] MR: [id number] V: [id number] EXAM DATE: ORDERING PHYSICIAN: SANTOSH ROBINS TECHNOLOGIST: SHANIKA Velasquez Reason : QT Blood Pressure : / mmHG Vent. Rate : 085 BPM Atrial Rate : 085 BPM P-R Int : 136 ms QRS Dur : 080 ms QT Int : 438 ms P-R-T Axes : 053 062 045 degrees QTc Int : 521 ms Normal sinus rhythm Prolonged QT Abnormal ECG When compared with ECG of 30-JUN-2018 20:49, T wave inversion now evident in Anterior leads Confirmed by DIAN WALKER ([id number]) on 07/01/2018 5:31:46 PM Referred By: JULIENNE Confirmed By:DIAN WALKER
[2018-07-01] MEDS ORDERED: ACETAMINOPHEN 500 MG TAB PO PRN (08:00)
[2018-07-01] MEDS ORDERED: ENOXAPARIN 40 MG/0.4ML SYR SC SCH (09:00)
[2018-07-01] MEDS ORDERED: MAGNESIUM SUL* 2 GM/50 ML IVPB 50 ML IVPB ONE (09:20)
--- NOTE | 2018-07-01 09:24 | Hospitalist Progress Note ---
Subjective Progress Notes Subjective The patient has a mild headache today. She is feeling anxious. Physical Exam Vital Signs Date Time Temp Pulse Resp B/P (MAP) Pulse Ox O2 Delivery O2 Flow Rate FiO2 07/01/18 09:03 80 07/01/18 09:00 17 107/76 (86) 91 Room Air 07/01/18 06:00 98.2 06/30/18 15:29 1.0 Intake and Output 07/01/18 06:59 Intake Total 3148 ml Output Total 4050 ml Balance -902 ml Intake Oral 1680 ml IV Total 1468 ml Output Urine Total 4050 ml General Appearance: Other (Sleepy.) Neuro: No Gross deficits Eyes: PERRLA Cardiovascular: Regular Rate and Rhythm Respiratory: Clear to Auscultation GI: Soft and Non-Tender Extremities: Warm, Perfused Psych: Appropriate Mood & Affect Result Diagram: 06/30/18 1524 07/01/18 0846 Assessment and Plan Problems: (1) Intentional SSRI (selective serotonin reuptake inhibitor) overdose Status: Acute Assessment & Plan: Will admit to ICU and monitor on telemetry. Monitor for arrhythmias. Repeat EKG at 2029. Benzodiazepines for agitation/anxiety as needed. Hydrate. Psychiatry to see in am. Following Poison Control's r ecommendations, we will give potassium and magnesium this am. She does have a prolonged QT and Poison Control Recommends a high normal magnesium level and a potassium of 4.5 or greater. Her potassium level is 3.8. Magnesium is 2.1. (2) Depression Status: Chronic Assessment & Plan: On Celexa. Will have psychiatry see. She is anxious this am. Valium ordered prn. (3) QT prolongation Status: Acute Assessment & Plan: See above. Will give potassium and magnesium and repeat EKG this afternoon. Time Spent on Plan of Care: < 30 min Exam Sepsis Risk: No Definite Risk SANTOSH ROBINS MD Jul 01, 2018 09:24
[2018-07-01] MEDS: KCL (*) 20 MEQ/100 ML PREMIX 100 ML IV SCH ×2 (10:29→12:46)
--- NOTE | 2018-07-01 12:07 | NUR ---
Poison Control calls to check on pt. Agreeable with replacing Mag, and Potassium and rechecking EKG after infused. State will follow later this afternoon. Informed of EKG this AM with QTc of 521.
--- NOTE | 2018-07-01 15:41 | EKG ---
FACILITY: [facility] - [place] PATIENT NAME: AGAPITO CARRINGTON : [id number] MR: [id number] V: [id number] EXAM DATE: ORDERING PHYSICIAN: SANTOSH ROBINS TECHNOLOGIST: SHANIKA Velasquez Reason : QT Blood Pressure : / mmHG Vent. Rate : 079 BPM Atrial Rate : 079 BPM P-R Int : 130 ms QRS Dur : 074 ms QT Int : 414 ms P-R-T Axes : 050 071 047 degrees QTc Int : 474 ms Normal sinus rhythm T flattening consistent with ant/sep ischemia vs normal variant When compared with ECG of 01-JUL-2018 06:47, QTc has normalized Confirmed by DIAN WALKER ([id number]) on 07/01/2018 5:35:32 PM Referred By: JULIENNE Confirmed By:DIAN WALKER
--- NOTE | 2018-07-01 16:57 | Hospitalist Depart ---
Discharge Summary Reason for Hosp/Final Diag: (1) Intentional SSRI (selective serotonin reuptake inhibitor) overdose Status: Acute Hospital Course & Plan: Admitted to the ICU and monitor on telemetry. Following Poison Control's recommendations, so she received potassium and magnesium this am. She did have a prolonged QTc and Poison Control Recommends a high normal magnesium level and a potassium of 4.5 or greater. The QTc has normalized. No further monitoring needed. She is going to [facility]. (2) Depression Status: Chronic Hospital Course & Plan: On Celexa, which has been stopped. Will defer to psychiatry about further treatment options. (3) QT prolongation Status: Resolved Hospital Course & Plan: See above. Departure Weight (Pounds): 116 Weight (Ounces): 3.0 Result Diagram: 06/30/18 1524 07/01/18 0846 Item Value Date Time White Blood Count 10.8 k/uL 06/30/18 1524 Platelet Count 341 K/uL 06/30/18 1524 Neutrophils (%) (Auto) 76.7 % H 06/30/18 1524 Lymphocytes (%) (Auto) 15.1 % L 06/30/18 1524 Monocytes (%) (Auto) 7.8 % 06/30/18 1524 Eosinophils (%) (Auto) 0.1 % L 06/30/18 1524 Basophils (%) (Auto) 0.3 % 06/30/18 1524 Nucleated RBC Relative Count (auto) 0.0 /100WBC 06/30/18 1524 Neutrophils # (Auto) 8.3 K/uL H 06/30/18 1524 Thyroid Stimulating Hormone (TSH) 9.68 uIU/ml H 06/30/18 1524 Blood Urea Nitrogen 7 mg/dl 06/30/18 1524 Creatinine 0.80 mg/dl 06/30/18 1524 Blood Urea Nitrogen 6 mg/dl L 07/01/18 0846 Creatinine 0.60 mg/dl 07/01/18 0846 Magnesium Level 1.9 mg/dl 06/30/18 1524 Total Bilirubin 0.2 mg/dl 06/30/18 1524 Aspartate Amino Transf (AST/SGOT) 31 U/L 06/30/18 1524 Alanine Aminotransferase (ALT/SGPT) 29 U/L 06/30/18 1524 Alkaline Phosphatase 83 U/L 06/30/18 1524 Potassium Level 3.9 mmol/L 06/30/18 1524 Magnesium Level 2.1 mg/dl 07/01/18 0846 Potassium Level 3.8 mmol/L 07/01/18 0846 Urine RBC None /HPF 06/30/18 1515 Urine WBC None /HPF 06/30/18 1515 Urine Leukocyte Esterase Negative 06/30/18 1515 Urine HCG, Qualitative Negative 06/30/18 1515 Serum Alcohol < 10 mg/dl 06/30/18 1524 Acetaminophen Level < 10 ug/ml 06/30/18 1524 Salicylates Level < 10 mg/L 06/30/18 1524 Urine Amphetamines Screen Positive 06/30/18 1515 EKG Vent. Rate : 079 BPM Atrial Rate : 079 BPM P-R Int : 130 ms QRS Dur : 074 ms QT Int : 414 ms P-R-T Axes : 050 071 047 degrees QTc Int : 474 ms Normal sinus rhythm Cannot rule out Anterior infarct (cited on or before 01-JUL-2018) Abnormal ECG When compared with ECG of 01-JUL-2018 06:47, No significant change was found Vent. Rate : 107 BPM Atrial Rate : 107 BPM P-R Int : 146 ms QRS Dur : 082 ms QT Int : 386 ms P-R-T Axes : 065 078 070 degrees QTc Int : 515 ms Sinus tachycardia Otherwise normal ECG When compared with ECG of 30-JUN-2018 15:26, No significant change was found Confirmed by SANTOSH LOWERY ([id number]) on 07/01/2018 6:35:04 AM Vent. Rate : 141 BPM Atrial Rate : 141 BPM P-R Int : 124 ms QRS Dur : 078 ms QT Int : 286 ms P-R-T Axes : 071 054 025 degrees QTc Int : 438 ms Sinus tachycardia Otherwise normal ECG When compared with ECG of 04-JUN-2018 08:46, Vent. rate has increased BY 77 BPM T wave inversion no longer evident in Anterior leads Confirmed by SANTOSH LOWERY ([id number]) on 07/01/2018 6:41:31 AM Condition: Improved Discharge: [facility] Discharge Instructions Home Meds Reported Medications Melatonin (MELATONIN) 3 Mg Tablet, 3 MG PO QHS 06/07/18 Citalopram Hydrobromide (CELEXA) 40 Mg Tablet, 40 MG PO QDAY, #5 TAB 06/07/18 Ethinyl Estradiol/Drospirenone (ADRIANA 28 TABLET) 1 Each Tablet, 1 EACH PO QDAY 01/21/15 Diet: Regular Activity: As Tolerated Special Instructions: Copies to: FAROOQ DHILLON NP ; Venous Thromboembolism Antithrombotics Is Pt On Any Antithrombotics?: No (Ambulate early.) DIAN WALKER MD Jul 01, 2018 16:57
== END 2018-07-01 16:22 ==
LOC: ER 15:38 → INTOOBSV 17:16 → ICU 17:16
PROVIDERS: ADMIT Internal Medicine; ATTEND Internal Medicine
DX: T50.902D Poisoning by unspecified drugs, medicaments and biological substances, intentional self-harm, subsequent encounter (principal); R00.0 Tachycardia, unspecified; F50.9 Eating disorder, unspecified; F32.9 Major depressive disorder, single episode, unspecified; I45.81 Long QT syndrome; R51 Headache; F41.9 Anxiety disorder, unspecified
CPT/HCPCS: 36415; 80305; 80320; 80329; 81001; 81025; 83735; 84443; 85025; 93005; 96360; 99285; G0378; J3475; J3480; J7030; 82040; 82247; 82310; 82374; 82435; 82565; 82947; 84075; 84132; 84155; 84295; 84450; 84460; 84520; 96365; 96368; 99284

== ENCOUNTER 2018-07-01 16:35 | Inpatient (IN) | payer OTHER ==
[~2018-07-01] VITALS: Ht 162.6 cm; Wt 51.7 kg
[2018-07-01 08:44] VITALS: Ht 162.6 cm; Wt 51.7 kg
[2018-07-01 16:35] VITALS: BP 108/72
[2018-07-01] MEDS ORDERED: diphenhydrAMINE 25 MG CAP PO ONE (21:05)
[2018-07-02 06:05] LABS: PLATELET COUNT, AUTOMATED 270 K/uL (150-450)
[2018-07-02 06:10] VITALS: BP 109/80
[2018-07-02 08:30] VITALS: BP 111/79
--- NOTE | 2018-07-02 09:25 | EKG ---
FACILITY: [facility] - [place] PATIENT NAME: AGAPITO CARRINGTON : [id number] MR: [id number] V: [id number] EXAM DATE: ORDERING PHYSICIAN: FAROOQ DHILLON TECHNOLOGIST: SHANIKA Velasquez Reason : QT Blood Pressure : / mmHG Vent. Rate : 066 BPM Atrial Rate : 066 BPM P-R Int : 138 ms QRS Dur : 076 ms QT Int : 458 ms P-R-T Axes : 048 068 061 degrees QTc Int : 480 ms Sinus rhythm Nonspecific T wave abnormality Prolonged QT Abnormal ECG Confirmed by GUANACO ROBINS ([id number]) on 07/02/2018 7:36:39 PM Referred By: Confirmed By:GUANACO ROBINS
--- NOTE | 2018-07-03 04:43 | ROMSA H&P ---
DATE OF ADMISSION: July 01, 2018 Date of admission to the Behavioral Health Unit: July 01, 2018 Date of admission to the intensive care unit: June 30, 2018 Date of initial psychiatric interview: July 02, 2018, approximately 9 a.m. ATTENDING PRACTITIONER Caitlin Crews, Psychiatric Mental Health Nurse Practitioner PRESENTING PROBLEM, CHIEF COMPLAINT "I was at work and went over to my friend's house. We went to mingle for a little bit. I hadn't drank that much and drove home. Once I got home, I remember going inside, then don't remember anything. I woke up on the ground. I do remember thoughts of 'What's the point?' I didn't know where I was or what happened. It took me a long time to realize what happened. I laid there all day and told myself I could sleep it off, but then called a friend, who brought me to the hospital." HISTORY OF PRESENT ILLNESS This patient is a 23-year-old single female who presented to the emergency department by a friend after a suicide attempt by drug ingestion. Patient reported that she took 20 to 30 Celexa 40 mg tablets as well as approximately six Adderall, which she obtained from her brother, and was also drinking alcohol. Patient was alert but somnolent, with a prolonged QTC interval. She had a recent suicide attempt by drug ingestion approximately one month ago under similar circumstances, where she was admitted to the intensive care unit until medically cleared to come to the Behavioral Health Unit. Patient again was admitted to the intensive care unit for stabilization until medically cleared to be transferred to the Behavioral Health Unit. She reported during her intensive care admission that she was doing well, and then the evening of the overdose, something changed as if a switch was flipped. She overdosed on Celexa and Adderall as well as had been drinking, and she woke up on the floor of her apartment not knowing how she got there. She was brought by a friend to the hospital for evaluation. Patient continues to report she does not remember the events leading up to the suicide attempt. At time of initial interview, she is rating her depression at 2 out of 10. She is denying thoughts of self-harm or ending her life. She reports her last suicidal thoughts were "I guess . I don't remember." She is rating her anxiety at 8 out of 10. She denies anger. She reports that her sleep was sufficient at home, sleeping seven to eight hours per day. She is reporting that she does have low energy, guilt and shame rated a 9 out of 10. She denies symptoms of neo or psychosis. She does report that she has vivid dreams at times. When last discharged from the Behavioral Health Unit, she was to follow up with Sheryl Villalpando for individual psychotherapy. She reports that she drove by the day of the appointment, but ended up not going in. She also states she had class within the next hour and was worried about making class on time. She was also going to be referred to a medication provider, possibly with the help of her parents, although denies that she is currently taking medications with the exception of the Celexa 40 mg that she was prescribed at the time of her last discharge, as well as Tressa oral control. The night of the suicide attempt, she reports drinking two to three beers, going home, not remembering that she had overdosed or reporting any recent stressors that would contribute to thoughts of ending her life. She has a history of an eating disorder and has attended five residential treatments in the past, from age 15 through 17. She is guarded with information, although states that her eating disorder is "under control now." Patient was stabilized in the intensive care unit and transferred to Behavioral Health. She is currently on an emergency long-term, which was placed at the time of her emergency room evaluation and upheld by the mental health examiner. MENTAL HEALTH HISTORY The patient had a previous inpatient psychiatric admission June 03 through June 07, after her suicide attempt by drug overdose. This is her second inpatient psychiatric admission at Behavioral Health Unit at [facility]. Patient also reports a history of an eating disorder and has been [facility] and at [facility] [place] four times from age 15 through 17. She has a history of anorexia and bulimia, although reports she has been in recovery since age 18. She is currently not in individual therapy. She has been taking Celexa 40 mg p.o. daily since her last discharge in May 2018. Prior medications include olanzapine, quetiapine, Lexapro, Paxil, Prozac, and may have been on other medication trials; however, she is unable to recall the names of these. FAMILY PSYCHIATRIC HISTORY Per record review, she believes there is mental illness on the paternal side of her family, although she is not aware of the diagnosis. There are no known suicides in her family. Previously reported she has a paternal aunt that is a half sibling of her father's that has problems with drug addiction. PAST MEDICAL HISTORY She is currently on control. She has a history of a malignant schwannoma tumor at age 12 and underwent many surgeries, rounds of chemotherapy, and invasive treatments as a child. This was traumatic to her, per record review, and treatment was terminated with the expectation that she would not survive; however, after the tumor was surgically removed, it did not return. Following this ordeal, it is reported she had difficulty with an eating disorder. CURRENT MEDICATIONS 1. Celexa 40 mg p.o. daily. 2. Tressa oral control daily. SOCIAL HISTORY The patient was born in [place], [place], and was there for two months, and was raised in several locations including [place], [place]; [place], [place]; [place], [place]. She did not graduate high school, although obtained her GED. She is currently in her senior year of college at [employer], majoring in history. Expected to graduate in August, although reports with her last hospitalization, she got behind in school and is unsure if she will graduate on time. She plans to take the LSAT. She is scheduled to take this at the end of June, although is unsure if she will be ready. Her parents live in [place], [place]. Her father is a psychiatrist. She previously reported that she does not get along with her mother. When asked about best support system, she states, "My friends." She has two brothers, one older and one younger. TRAUMA HISTORY Patient denies history of physical, emotional, or sexual abuse. LEGAL HISTORY She had one MIP for alcohol use at age 20. SUBSTANCE ABUSE HISTORY Patient first drank alcohol at age 20. She reports sporadic use, drinking one to two times per week. She was drinking two to three beers on the day of her overdose. She reports she does have a history of blackouts. She denies a history of illicit drug use and denies tobacco use. PHYSICAL EXAMINATION Please see emergency room notes for physical exam. Vital signs at time of admission including temperature 98.8, pulse 95, respiratory rate 16, blood pressure 108/72, pulse oximetry 96% on room air. LABORATORY DATA Most recent laboratory data including CBC with low RBCs 3.91, lymphocyte percent 55.3. Chemistry panel: Sodium 136. Thyroid stimulating hormone is pending. Laboratory data at the time of emergency room presentation including carbon dioxide low at 21, total protein elevated at 8.. Thyroid stimulating hormone elevated at 9.68, which is being redrawn. Urine screen within normal limits. Toxicology includes salicylate, acetaminophen, serum alcohol levels less than 10. Urine screen negative for opiates, barbiturates, tricyclics, phencyclidine, benzodiazepines, cocaine, and cannabinoids, positive for amphetamines, which she reports she received from her brother (Adderall). MENTAL STATUS EXAMINATION GENERAL APPEARANCE, BEHAVIOR AND ATTITUDE: Patient is calm, cooperative, with no periods of tearfulness at time of initial interview. She is making good eye contact. No bizarre mannerisms or tics. No psychomotor agitation or retardation. SPEECH: Soft-spoken. Regular rhythm. MOOD: Dysthymic. AFFECT: Somewhat anxious. Range is full and appropriate to situation and content. THOUGHT PROCESSES: Logical and goal-directed, no loose associations or flight of ideas. THOUGHT CONTENT: Free of auditory or visual hallucinations, ideas of reference, thought broadcasting, delusions, obsessions or compulsions. The patient is denying suicidal or homicidal ideations. Denies any thoughts of self-harm. COGNITION: Alert and oriented to person, place, date, and situation. INTELLIGENCE: Average, based on interview. MEMORY: Immediate, recent, and remote intact with the exception of the events prior to drug ingestion by overdose. INSIGHT AND JUDGMENT: Fair. ASSESSMENT This is a 23-year-old single female who was brought to the emergency room by a friend after she had been drinking and overdosed on approximately 30 Celexa 40 mg tablets as well as approximately six Adderall while drinking alcohol after she returned from the bar. She does not remember thoughts of wanting to end her life. It was not a planned attempt, and done impulsively. She does not attend any specific stressors with the exception of getting behind in school following her last suicide attempt by drug ingestion approximately one month ago. She denies thoughts of ending her life or self-harm. She was placed on emergency long-term at the time of her emergency room presentation, which was upheld by the mental health examiner. We will continue to gain collateral information and ongoingly work on discharge planning in hopes that appropriate outpatient mental health services will be secured prior to discharge. DIAGNOSES Adjustment disorder with depressed mood. Suicide attempt by drug ingestion (SSRI and stimulant). Eating disorder (anorexia and bulimia), per history. Malignant peripheral sheath tumor, in remission. PLAN 1. Will admit to the unit. 2. Necessary precautions will be implemented. 3. Individual and group therapy to be initiated. 4. Close monitoring of vital signs and laboratory data post suicide attempt by drug ingestion. 5. Medications to be considered and titrated accordingly. 6. Further labs and imaging as appropriate. 7. Estimated length of stay unknown at the present time. We will continue to work on appropriate discharge planning with mental health outpatient services recommended and scheduled prior to discharge. SANDRA
[2018-07-03 06:21] VITALS: BP 108/78
[2018-07-03 06:26] LABS: PLATELET COUNT, AUTOMATED 294 K/uL (150-450)
--- NOTE | 2018-07-03 08:30 | EKG ---
FACILITY: [facility] PATIENT NAME: AGAPITO CARRINGTON : [id number] MR: [id number] V: [id number] EXAM DATE: ORDERING PHYSICIAN: FAROOQ DHILLON TECHNOLOGIST: Test Reason : BHS Blood Pressure : / mmHG Vent. Rate : 064 BPM Atrial Rate : 064 BPM P-R Int : 138 ms QRS Dur : 076 ms QT Int : 452 ms P-R-T Axes : 053 072 051 degrees QTc Int : 466 ms Normal sinus rhythm with sinus arrhythmia Nonspecific T wave abnormality Prolonged QT Abnormal ECG No previous ECGs available Confirmed by ROSY PALMER ([id number]) on 07/03/2018 10:33:26 AM Referred By: Confirmed By:ROSY PALMER
[2018-07-03 13:52] VITALS: BP 112/72
--- NOTE | 2018-07-03 15:35 | BHS Progress Note ---
[facility] - Subjective Progress Notes Subjective I met with Dolly this morning in treatment team. I know her from her prior admission to [facility] last month. She tells me that she was "doing fine" until last when she went out with some friends and they went to a bar and she started drinking. She came home and says that she does not recall what happened and only has a vague memory of looking at herself in the mirror and doesn't remember taking pills. She awoke at 4 am and called a friend who came over and brought her to the hospital. Today she feels "tired" but her mood is "okay." She is a little worried about her academic status since she has not been able to catch up in school following her last overdose attempt and hospitalization. She has talked to her parents who are "mad" and have told her that she needs to "grow up." She blames them for not being warm and supportive. We talked to Lily in the supervisor rubber covering' office as there is a release and she wanted to know about Dolly's status. We told her about the overdose and that I am not recommending discharge in the immediate future. We have not restarted any medication at this time. Dolly's QTc is still 466 today. Suicidal Ideation: None Homicidal Ideation: None [facility] - Objective Physical Exam Vital Signs Vital Signs 07/02/18 07/03/18 08:30 13:52 Temp 98.6 Pulse 66 Resp 16 B/P (MAP) 112/72 (85) Pulse Ox 94 O2 Delivery Room Air Muscle Strength and Tone: WNL Gait and Station: Steady Allergies Reviewed: No Mental Status Exam General Appearance: Casual, Well Groomed, Good Eye Contact, Cooperative, Polite, Good Interaction Speech: Clear, Spontaneous, Normal Rate, Normal Rhythm, Normal Volume, Normal Tone Mood: Other (anxious) Affect: Anxious Thought Process: Organized, Logical, Goal Directed Thought Content: No Suicidal Ideation, No Homicidal Ideation, No Delusions Sensorium: Clear Cognition: Alert & Oriented-Person, Alert & Oriented-Place, Alert & Oriented- Time, Madmo-Rlftlfol-Pksdmidje Memory: Immediate, Recent, Remote, Other Intelligence: Above Average Result Diagram: 07/03/1861107/03/18611 [facility] Assessment and Plan Qxmh-ib-Gikf Encounter Date: Jul 03, 2018 Intk-ul-Ovcf Encounter Time: 09:45 [facility] Plan: Admit to Unit, Necessary Precautions, Individual/Group Therapy, Admin/Titrate Meds Problems: (1) Intentional SSRI (selective serotonin reuptake inhibitor) overdose Status: Acute (2) QT prolongation Status: Resolved (3) Adjustment disorder with depressed mood (4) REFRACTORY ANEMIA, UNSPECIFIED Condition Given that this is the second overdose of medications in a month, I do not believe that it is prudent to release Dolly without first looking more carefully at the causes for this attempt and what we and she can do to prevent another episode like this. She did not follow through with out prior release plan to find a psychiatrist of her choosing in [place] and to see Mayte Villalpando for therapy. She is not doing well in school and seems to be falling farther behind. Her relationship with her parents is now more strained that before and she does not see them as a support as she did when she left the hospital the last time. I am requesting further involuntary hospitalization. ARIAS CANALES DO Jul 03, 2018 15:35
[2018-07-03] MEDS ORDERED: IBUPROFEN 800 MG TAB PO PRN (20:50)
[2018-07-03 21:23] VITALS: BP 108/80
[2018-07-04 04:33] VITALS: BP 93/68
[2018-07-04 14:25] VITALS: BP 100/78
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
[2018-07-04 21:39] VITALS: BP 118/88
[2018-07-05 06:05] VITALS: BP 97/77
[2018-07-05 13:20] VITALS: BP 113/79
--- NOTE | 2018-07-05 19:04 | BHS Progress Note ---
[facility] - Subjective Progress Notes Subjective I met with Dolly in treatment team this morning. We began the day with a conference call including Dolly, the team and her mother, Joan Leonard by phone. We discussed Dolly's progress and needs. Both Dolly and her mother are very concerned about Hetal's academic status. She is scheduled to take her LSAT on Tuesday. Both Dolly and her mother are anxious for her to be released in time to go to the test. I pointed out that we need to be sure we have done the work that we need to do to help insure that Dolly is safe to be released. I have asked Dolly to think about and write down a list of factors that may have contributed to her suicide attempt in an effort to begin to analyze the causes and what we need to help her change and to develop a safety plan. We also want Hetal to complete a cause and effect analysis, continue working through the DBT series to be sure she can apply these stress management skills, and we also want to address her use of alcohol and other substances. We need to work on discharge planning as well. We would like Dolly to be able to verbalize the hidden reasons for her suicide attempt. During the conference call we discussed our plan for Dolly and also learned some important things. Joan Leonard was upset because she felt that Dolly was "left hanging" following her last discharge. She was not aware that Dolly had not gone to her appointment with Mayte Villalpando. She thought that we had assumed [facility] We clarified that this was not the case and that Dolly had not discussed her therapy arrangements with her mother. We all agreed that on-going therapy is essential for Dolly. We talked about who would be a good fit for Dolly following this discharge. We also talked about Dolly's drinking and use of Adderall. I asked her where she got the Adderall. She admits that she took it from her brother's room in [place] without anyone's knowledge or consent. She was not using the Adderall to help her study or because she thinks she has AD/HD. She took it because it "made me feel better when I drank." She agrees that this as well as the drinking is a problem. Dolly mentioned that both times she overdosed, it was a Thursday night, she went out with friends, started drinking, and "came home alone." She feels that loneliness is a large part of what contributes to her negative moods and anxiety. Her roommate is always at her boyfriend's apartment, so Dolly functionally lives alone with her dog. She feels nervous, often, when she is alone. We talked about options for Dolly including the most extreme--on-going hospitalization and ultimate commitment to [facility], staying at [facility] longer, transfer to a residential treatment program, completion of inpatient treatment at [facility] and then aftercare in [place]. Both Dolly and her mother are adamant that they are against a long hospital stay or residential treatment. Dolly was in residential treatment for her eating disorder four times as an adolescent. She, and her mother agrees, that this was mostly a bad experience and that she was worse after she was released three out of the four times she went. Dolly want to "finish my undergraduate degree and move past this." Today, Dolly rates her anxiety as an 8/10, depression and suicidal impulses are 0/10. Suicidal Ideation: None Homicidal Ideation: None [facility] - Objective Physical Exam Vital Signs This morning, Dolly's vital signs were 98.1, 88, 15, 97/77 and 94%. Muscle Strength and Tone: WNL Gait and Station: Steady [facility] Medications Reviewed: Side Effects, Benefits of Medication, Risks Allergies Reviewed: No Mental Status Exam General Appearance: Casual, Well Groomed, Good Eye Contact, Cooperative, Polite, Good Interaction Speech: Clear, Spontaneous, Normal Rate, Normal Rhythm, Normal Volume, Normal Tone Mood: Other (anxious) Affect: Full and Appropriate, Anxious Thought Process: Organized, Logical, Goal Directed Thought Content: No Suicidal Ideation, No Homicidal Ideation, No Delusions Sensorium: Clear Cognition: Alert & Oriented-Person, Alert & Oriented-Place, Alert & Oriented-Time, Hpsns-Zaflevkf-Vrylhmqjk Memory: Immediate, Recent, Remote, Other Intelligence: Above Average Result Diagram: 07/03/1861107/03/18611 [facility] Assessment and Plan Ffhr-xs-Qmbh Encounter Date: Jul 05, 2018 Gnan-vb-Rqtr Encounter Time: 09:00 [facility] Plan: Admit to Unit, Necessary Precautions, Individual/Group Therapy, Admin/Titrate Meds Problems: (1) Intentional SSRI (selective serotonin reuptake inhibitor) overdose Status: Resolved (2) QT prolongation Status: Resolved (3) Adjustment disorder with depressed mood (4) REFRACTORY ANEMIA, UNSPECIFIED Condition Hetal is doing important work here. We all agree that we need to help her move on from this hospitalization as soon as possible to that she does not miss any more school and can get on with her life. She is scheduled for hearing today. I am meeting with her later on today as well. ARIAS CANALES DO Jul 05, 2018 19:04
[2018-07-05] MEDS: FLUoxetine HCL 20 MG CAP PO SCH (19:48)
[2018-07-05 22:03] VITALS: BP 118/88
--- NOTE | 2018-07-06 06:06 | BHS Progress Note ---
BHS - Subjective Progress Notes Subjective Dolly went to hearing this afternoon. Further hospitalization was approved by the court and the court also ordered outpatient monitoring and followup. I attended the hearing and spoke about my concerns about Dolly's suicide attempts as well as what work we still need to do together to help insure that she does not feel compelled to do this again. Dolly also took the opportunity to speak on her own behave and agreed with the recommendation that she needs on-going care but also talked about her desire to complete her inpatient work quickly so that she can take the LSAT on Tuesday and get on with her life. I talked to Dolly following the hearing. She came away feeling that she was heard and was satisfied with the outcome believing that it will help support her recovery. I met with Dolly individually for over an hour this afternoon. We talked about the events leading up to her suicide attempt this time as well as the last. We agreed that there were several important factors including her drinking, the possibility of rebound depression when Adderall wore off, and, especially, the loneliness she feels. We addressed the causes of the loneliness, her desire for emotional intimacy and how she is frustrated in her attempts to get this from friends and family. We talked about what she does that makes this more difficult for her and what she can change. We agreed that loneliness is perhaps the more dangerous risk factor for her and discussed practical measures she can take to avoid finding herself in the "dark place" she was in when she overdosed last week. I told Dolly that I do not want her to drink any alcohol for the time being and stop taking Adderall. She agrees that these are risk factors. We also discussed her stress level. We both agreed that in order to finish the semester, it would help if she did not have to work and could focus on her studies. We talked about options if she cannot finish all of her classes as she hopes to do. We agreed that she has options. We also talked about other potential barriers she may encounter and how she can deal with these as they arise. We agreed she may be frustrated in ways that she cannot anticipate now. She wants to have a therapist to help her. She also says that she needs the assembler installer structures' office to help her. We agreed that having a local person to manage her medication will also help. We talked about medications and agreed that an SSRI antidepressant may help Hetal not to ruminate as much as she is prone to doing. She cannot recall having taken Prozac in the past and we agreed to start that today. I also called [facility] pharmacy and cancelled all refills for citalopram. I learned that Dolly had last filled a prescription for thirty tablets on June 07. Suicidal Ideation: None Homicidal Ideation: None [facility] - Objective Physical Exam [facility] Medications Reviewed: Side Effects, Benefits of Medication, Risks Allergies Reviewed: Yes Mental Status Exam General Appearance: Casual, Well Groomed, Good Eye Contact, Cooperative, Polite, Good Interaction Speech: Clear, Spontaneous, Normal Rate, Normal Rhythm, Normal Volume, Normal Tone Mood: Other (anxious) Affect: Full and Appropriate, Anxious Thought Process: Organized, Logical, Goal Directed Thought Content: No Suicidal Ideation, No Homicidal Ideation, No Delusions Sensorium: Clear Cognition: Alert & Oriented-Person, Alert & Oriented-Place, Alert & Oriented- Time, Tqsgu-Olszfvpx-Vvrcznwqe Memory: Immediate, Recent, Remote, Other Intelligence: Above Average Result Diagram: 07/03/1861107/03/18611 [facility] Assessment and Plan Etlq-mh-Ydei Encounter Date: Jul 05, 2018 Umuj-cy-Guwc Encounter Time: 15:30 [facility] Plan: Admit to Unit, Necessary Precautions, Individual/Group Therapy, Admin/Titrate Meds Problems: (1) Intentional SSRI (selective serotonin reuptake inhibitor) overdose Status: Resolved (2) Adjustment disorder with depressed mood (3) REFRACTORY ANEMIA, UNSPECIFIED (4) QT prolongation Status: Resolved Condition Will start fluoxetine 20 mgs today. Continue to work through our treatment plan. I hope Dolly can be released by Tuesday. She is trying hard and doing productive work. ARIAS CANALES DO Jul 06, 2018 06:06
--- NOTE | 2018-07-06 06:08 | BHS Progress Note ---
S - Subjective Progress Notes Subjective Yesterday, we started fluoxetine 20 mgs daily. She took the first dose last night and had some difficulty getting to sleep but is sleepy this morning after having had her am dose. Mood continues improved. Today, we discussed Dolly's drinking and use of Adderall. She believes that the Adderall was mostly to blame for her plummeting mood both times she overdosed. She says that she will not do that again and realizes this is dangerous for her. She does not see drinking as a problem since she says that she does not drink often, has drunk alcohol since she turned 22 and only drinks socially. We warned her that it could still be risky for her to use alcohol. Discussed aftercare plans. She agrees to [facility] for medical aftercare. I called and made her an appointment for July 17 at 8:45 am with Myla Sanchez and asked Flower Laura to call me back about Dolly's needs. Suicidal Ideation: None Homicidal Ideation: None [facility] - Objective Physical Exam Vital Signs Vital Signs 07/06/18 06:31 Temp 98.0 Pulse 80 Resp 15 B/P (MAP) 100/80 (87) Pulse Ox 96 O2 Delivery Room Air [facility] Medications Reviewed: Side Effects, Benefits of Medication, Risks Allergies Reviewed: Yes Mental Status Exam General Appearance: Casual, Well Groomed, Good Eye Contact, Cooperative, Polite, Good Interaction Speech: Clear, Spontaneous, Normal Rate, Normal Rhythm, Normal Volume, Normal Tone Mood: Other (anxious) Affect: Full and Appropriate, Anxious Thought Process: Organized, Logical, Goal Directed Thought Content: No Suicidal Ideation, No Homicidal Ideation, No Delusions Sensorium: Clear Cognition: Alert & Oriented-Person, Alert & Oriented-Place, Alert & Oriented- Time, Wbwap-Ifhlctms-Ntjnwrpav Memory: Immediate, Recent, Remote, Other Intelligence: Above Average Result Diagram: 07/03/1861107/03/18611 [facility] Assessment and Plan Dtji-wu-Lsfn Encounter Date: Jul 06, 2018 Kcsv-gu-Dzol Encounter Time: 10:48 [facility] Plan: Admit to Unit, Necessary Precautions, Individual/Group Therapy, Admin/Titrate Meds Problems: (1) Intentional SSRI (selective serotonin reuptake inhibitor) overdose Status: Resolved (2) Adjustment disorder with depressed mood Assessment & Plan: Continue to work on skills training. (3) REFRACTORY ANEMIA, UNSPECIFIED (4) QT prolongation Status: Resolved Condition Dolly is making good progress in groups and individual therapy. We are working through the details of her discharge planning. I contacted [facility] and made her an appointment with Myla Sanchez for July 17 at 8:45 am. I am awaiting a call from Ms. Sanchez to discuss her care. Will continue Prozac 20 mgs daily. Await meeting with Matt's office and parents tomorrow. Anticipate discharge tomorrow afternoon. ARIAS CANALES DO Jul 06, 2018 06:08
[2018-07-06 06:31] VITALS: BP 100/80
[2018-07-06] MEDS: FLUoxetine HCL 20 MG CAP PO SCH (08:39)
[2018-07-06 13:38] VITALS: BP 103/73
[2018-07-06 22:37] VITALS: BP 118/85
[2018-07-06 23:52] VITALS: BP 108/76
[2018-07-07] MEDS ORDERED: diphenhydrAMINE 25 MG CAP PO ONE
[2018-07-07] MEDS: FLUoxetine HCL 20 MG CAP PO SCH (08:38)
[2018-07-07] MEDS ORDERED: FLUO-202 PO (11:29)
[2018-07-07] MEDS ORDERED: IBUP-1671 PO (11:29)
[2018-07-07 12:43] VITALS: BP 108/64
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
== END 2018-07-07 14:14 | disposition home or self-care (01) | DRG 881 ==
LOC: BHS 16:35
PROVIDERS: ADMIT Nurse Practitioner Psychiatric/Mental Health; ATTEND Nurse Practitioner Psychiatric/Mental Health
DX: F43.21 Adjustment disorder with depressed mood (principal); T43.222A Poisoning by selective serotonin reuptake inhibitors, intentional self-harm, initial encounter; T43.622A Poisoning by amphetamines, intentional self-harm, initial encounter; I45.81 Long QT syndrome; D64.9 Anemia, unspecified; Z62.820 Parent-biological child conflict; Z91.5 Personal history of self-harm; Z81.8 Family history of other mental and behavioral disorders; Z81.3 Family history of other psychoactive substance abuse and dependence; Z85.848 Personal history of malignant neoplasm of other parts of nervous tissue; Z92.21 Personal history of antineoplastic chemotherapy; Z73.3 Stress, not elsewhere classified; Z55.3 Underachievement in school
CPT/HCPCS: 36415; 82040; 82247; 82310; 82374; 82435; 82565; 82947; 84075; 84132; 84155; 84295; 84443; 84450; 84460; 84520; 85025; 93005

== ENCOUNTER → 2018-07-12 | Outpatient (CLI) | payer OTHER ==
[2018-07-01 08:44] VITALS: BMI 21.2
[~2018-07-12] MED LIST changes: +FLUO-202 PO; +IBUP-1671 PO
[2018-07-12 10:49] LABS: PLATELET COUNT, AUTOMATED 335 K/uL (150-450)
== END ==
LOC: LAB 10:23
PROVIDERS: ATTEND Nurse Practitioner Family
DX: D64.9 Anemia, unspecified (principal); R94.6 Abnormal results of thyroid function studies
CPT/HCPCS: 36415; 82728; 83540; 84439; 84443; 84481; 85025; 86376; 86800